=== PATIENT | male | born 1960 ===

== ENCOUNTER 2019-02-23 06:32 | Outpatient (CLI) | payer OTHER ==
[~2019-02-23 06:32] MED LIST: BENADRYL25 MG PO
== END 2019-02-23 06:35 | disposition home or self-care (01) ==
LOC: LAB 06:32
DX: R10.13 Epigastric pain (principal)

== ENCOUNTER 2019-02-23 08:00 | Outpatient (CLI) | payer OTHER | END 2019-02-25 08:58 | disposition home or self-care (01) | LOC: SONOGRAMA 08:00 | DX: R10.13 Epigastric pain (principal) ==

== ENCOUNTER → 2019-03-10 06:14 | Outpatient (CLI) | payer OTHER | END | disposition home or self-care (01) | LOC: LAB 06:14 | DX: R97.21 Rising PSA following treatment for malignant neoplasm of prostate (principal) ==

== ENCOUNTER 2020-02-24 00:46 | Emergency (ER) | payer OTHER ==
[~2020-02-24] VITALS: Ht 188 cm; Wt 116.1 kg
[2020-02-24] MEDS ORDERED: PEPCID AC20 MG PO (05:09)
[2020-02-24] MEDS ORDERED: KETO10TA2 PO (05:09)
[2020-02-24] MEDS ORDERED: LEVSIN0.125 MG PO (05:09)
== END 2020-02-24 05:25 | disposition home or self-care (01) ==
LOC: ER 00:46
DX: K80.20 Calculus of gallbladder without cholecystitis without obstruction (principal); R10.13 Epigastric pain; Z03.818 Encounter for observation for suspected exposure to other biological agents ruled out

== ENCOUNTER 2020-02-26 12:49 | Inpatient (IN) | payer OTHER ==
[~2020-02-26] VITALS: Ht 188 cm; Wt 117.9 kg
[~2020-02-26 12:49] MED LIST changes: -PERCOCET 5-3251 EACH PO; -PRILOSEC OTC20 MG PO
--- NOTE | 2020-02-26 13:20 | NUR ---
[id number] REFERRIDO POR DR ARLENE PATINO SE ERIC S/V GENESIS JO EN AREA DE OBSERVACION
--- NOTE | 2020-02-26 14:32 | NUR ---
EVALUADO POR LA SE ORIENTA SOBR TRATAMIENTO MEDICO POR LE EXTRAE MUESTRAS DE HIRO Y SE ENVIAN AL LABORATORIO. SE LE REALIZA EKG Y SE LE PRESENTA LA DRCLAIRE. SE MANTIENE EN OBSERVACION.
[2020-03-02] MEDS ORDERED: PRILOSEC OTC20 MG PO (13:37)
[2020-03-02] MEDS ORDERED: PERCOCET 5-3251 EACH PO (13:37)
== END 2020-03-02 14:52 | disposition home or self-care (01) | DRG 418 ==
LOC: ER 12:49 → SURH 14:56
PROVIDERS: ADMIT Surgery; ATTEND Surgery
PROC: 0FT44ZZ Resection of Gallbladder, Percutaneous Endoscopic Approach (ICD-10-PCS; principal; 2020-02-27 10:00)
DX: K80.12 Calculus of gallbladder with acute and chronic cholecystitis without obstruction (principal); K82.1 Hydrops of gallbladder; T81.41XA Infection following a procedure, superficial incisional surgical site, initial encounter; L03.311 Cellulitis of abdominal wall; K82.A1 Gangrene of gallbladder in cholecystitis; Z20.828 Contact with and (suspected) exposure to other viral communicable diseases

== ENCOUNTER → 2020-02-26 | Outpatient (CLI) | payer OTHER ==
[~2020-02-26] MED LIST changes: +KETO10TA2 PO; +LEVSIN0.125 MG PO; +PEPCID AC20 MG PO; +PERCOCET 5-3251 EACH PO; +PRILOSEC OTC20 MG PO
== END | disposition home or self-care (01) ==
LOC: TOM 09:33
PROVIDERS: ATTEND Surgery
DX: R10.32 Left lower quadrant pain (principal); R10.84 Generalized abdominal pain

== ENCOUNTER 2020-04-23 08:00 | Outpatient (CLI) | payer OTHER ==
[~2020-04-23 08:00] MED LIST changes: +PERCOCET 5-3251 EACH PO; +PRILOSEC OTC20 MG PO
== END 2020-04-23 15:00 | disposition home or self-care (01) ==
LOC: PPH VACUNA 08:00
DX: Z23 Encounter for immunization (principal)

== ENCOUNTER 2021-05-15 11:41 | Outpatient (CLI) | payer OTHER | END 2021-05-15 11:42 | disposition home or self-care (01) | LOC: PPH VACUNA 11:41 | PROVIDERS: ATTEND Emergency Medicine Pediatric Emergency Medicine | DX: Z23 Encounter for immunization (principal) ==